=== PATIENT | male | born 1950 | race Caucasian/White ===

== ENCOUNTER 2016-10-02 08:26 | Inpatient (IN) | payer BC, MEDICARE ==
[~2016-10-02] VITALS: Ht 182.9 cm; Wt 99.8 kg
--- NOTE | ~2016-10-02 | MR101 ---
[facility] A Service of [facility] & [facility] RADIOLOGY TEXT RESULTS PATIENT: MORENO SALINAS LOCATION: [facility] 465-01 : [birth year] UNIT #: [id number] AGE: [address]: Martin Archer MD SEX: M ORDER DR: [id number] [facility] [address] [facility]. [place], [place] [address] [id number] I MR#: [id number] #: [id number] NAME: MORENO SALINAS. : 1950 SEX: M STUDY DATE/TIME: 10/04/2016 17:34 UNIT: [facility] ROOM: [facility] STUDY DESCRIPTION: MR Knee WWo Contrast Lt Attending Physician: Martin Archer M.D. Ordering Physician: Martin Archer M.D. Primary Care Physician: Tio Vergara M.D. MRI CENTER REPORT This report is preliminary unless electronic signature is present. EXAM Left knee MRI without and with contrast, 10/04/2016 HISTORY 65-year-old male with left knee pain and swelling on the patella for 6 days. History of a fall 6 weeks ago. History of diabetes. History of at least two prior left knee surgeries. No operative reports available for review. COMPARISON Knee x-rays 05/20/2009. Left knee x-ray 10/02/2016. TECHNIQUE Multiplanar, multisequence high field MR imaging of the left knee was performed both pre and post administration of IV gadolinium (20 mL MultiHance). FINDINGS There is moderate prepatellar subcutaneous soft tissue edema with some ill-defined fluid noted in the region of the prepatellar bursa. No organized drainable fluid collection identified to suggest abscess. Findings do suggest prepatellar bursal inflammation. There is a small knee effusion with enhancement of the synovium suggesting synovitis. This may be inflammatory and/or post-traumatic. Infectious synovitis considered less likely. Small popliteal cyst also noted. There is truncation of the posterior horn and body segment of the medial meniscus suggesting prior partial medial meniscectomy. No evidence of a recurrent medial meniscus tear. Lateral meniscus appears intact. Cruciate and collateral ligaments are intact. Extensor mechanism is intact. [facility] A Service of [facility] & [facility] RADIOLOGY TEXT RESULTS PATIENT: MORENO SALINAS LOCATION: [facility] 465-01 : [birth year] UNIT #: [id number] AGE: [address]: Martin Archer MD SEX: M ORDER DR: There is high-grade chondromalacia lateral patellar facet with mild subchondral marrow edema. Moderate to high-grade chondromalacia throughout the femoral trochlea. Lateral compartment articular cartilage is intact. There is high-grade full-thickness articular cartilage loss throughout the medial compartment. Bone marrow signal is otherwise within expected limits. No MR evidence of osteomyelitis or acute fracture. Visualized musculature is unremarkable. IMPRESSION 1. Moderate subcutaneous soft tissue edema and inflammation along the anterior aspect of the knee. There is some ill-defined fluid in the region of the prepatellar bursa suggesting bursitis. No organized drainable fluid collections to suggest abscess. 2. No MR evidence of osteomyelitis or acute fracture. 3. Small knee effusion with synovial enhancement consistent with synovitis. This is likely inflammatory and/or post-traumatic. Infectious synovitis considered less likely. 4. Presumed postsurgical changes of prior partial medial meniscectomy. No evidence of a recurrent meniscus tear. No acute ligament injury. 5. 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 Dictated by... Kel Lerner M.D. THIS IS AN ELECTRONICALLY VERIFIED REPORT Kel Lerner M.D. at 10/06/2016 12:15 PM KVNG/wolf TD: 10/05/2016 08:51 JOB #: [id number] MRI CENTER REPORT Page 1 of 1 COPY
--- NOTE | ~2016-10-02 | DS ---
Unit #: [id number] #: [id number] Patient: MORENO SALINAS [id number] [address] [address] [id number] I MR#: [id number] NAME: MORENO SALINAS. ROOM: [facility] Age: 65 Sex: M Admission Date: 10/02/2016 : 1950 Discharge Date: 10/05/2016 Attending Physician: Martin Archer M.D. Primary Care Physician: Tio Vergara M.D. DISCHARGE SUMMARY PRINCIPAL DISCHARGE DIAGNOSES 1. Left knee cellulitis. 2. Hypertension. 3. Hyperlipidemia. 4. Chronic insomnia. 5. Osteoarthritis. 6. Renal insufficiency. 7. Iron deficiency anemia. 8. Chronic ataxia. PROCEDURES PERFORMED None. CONSULTANTS Dr. Lanza from orthopedics. REASON FOR HOSPITALIZATION The patient is a 65-year-old white male with a history of hypertension, hyperlipidemia, insomnia, osteoarthritis, recently found to have renal insufficiency at which time his Farxiga apparently discontinued. He has had some type of chronic ataxia for which he has had multiple workups and is approaching a trip to the [facility] for further evaluation. He has had multiple recent falls on his knees. He developed a scab on the lateral aspect of his left knee, which he was continuously picking at. He then noticed that the knee suddenly became red, swollen, felt feverish locally, but no fever or chills systemically. He presented himself to the emergency room, where x-ray showed a small effusion, moderate osteoarthritis, prepatellar effusion. His white count was normal. He had an elevated sedimentation rate and CRP, mild anemia, mild renal insufficiency and was admitted. HOSPITAL COURSE On admission his coags were normal. Uric acid was normal Sedimentation rate was 77 and CRP 6.6. BMP normal except for CO2 of 21. Random blood sugar was 149, BUN 38, creatinine 1.7, GFR 41.4, hemoglobin 11.5 with normal indices. The patient was started on IV Cleocin. Orthopedics was consulted. He had some initial improvement in the first 24 hours, but it did not seem to improve after that. Because of this, Augmentin was added this antibiotic regimen. Accu-Cheks were obtained morning and evening. Low-dose sliding scale insulin was instituted. He was placed on Lovenox for DVT prophylaxis. Labs were sent for further workup of his anemia. His iron was low at 13. TIBC was 295. Transferrin was normal. Transferrin saturation was low at 4. B12 and folic acid levels were normal. His renal function improved somewhat while he was here. Because Unit #: [id number] #: [id number] Patient: MORENO SALINAS of his iron deficiency anemia a stool for occult blood was ordered times three. One was performed and was negative. Because of his lack of initial improvement, he underwent MRI of the left knee, which showed moderate subcutaneous soft tissue edema and inflammation along the anterior aspect of the knee. No defined fluid was in the region of the prepatellar bursa, suggestive of bursitis. No organized drainable fluid collection to suggest abscess. Small knee effusion with synovial enhancement, consistent with synovitis. Evidence of prior medial meniscectomy, high-grade chondromalacia of the lateral patellar facet, femoral trochlea. In any case, in discussion with Dr. Lanza since the patient was improving and in the last 24 hours on Augmentin and Cleocin, he felt that it was safe to discharge him home with followup in his office, which was already scheduled. The patient's Glucophage was discontinued on admission and held because of his renal insufficiency. FOLLOWUP 1. He is to follow up with Dr. Vergara in one week. 2. Follow up with Dr. Lanza per his instructions. 3. He will need to follow up for his iron deficiency anemia. I do not know when his last colonoscopy was. This may need to be performed. ACTIVITY He has no particular limitations on activity. DISCHARGE MEDICATIONS He was discharged home with a prescription for 1. Augmentin 875 mg 1 p.o. b.i.d. for an additional 9 days, 2. Cleocin 300 mg 1 p.o. q.i.d. for an additional 7 days. 3. Florastor 250 mg 1 p.o. b.i.d. for 30 days. 4. Again, he is off his Glucophage and resumed on all of his other home medicines, which include a. Ambien 10 mg 1 p.o. at nighttime p.r.n. insomnia. b. Crestor 40 mg p.o. daily. c. Cymbalta 50 mg p.o. daily. d. Vistaril 40 mg p.o. daily. e. Amitriptyline 25 mg p.o. at nighttime. f. Metoprolol succinate 50 mg daily. g. Actos 30 mg daily. DIET Healthy heart, constant carb diet. Dictated by... Von Ldeezma/mary TD: 10/06/2016 13:42 JOB #: [id number] Unit #: [id number] #: [id number] Patient: MORENO SALINAS Pam DISCHARGE SUMMARY Page 1 of 1 X Martin Archer MD X DISCHARGE SUMMARY
--- NOTE | ~2016-10-02 | HP ---
Unit #: [id number] #: [id number] Patient: MORENO SALINAS [id number] [address] [place], [place] [address] [id number] MR#: [id number] NAME: MORENO SALINAS ROOM: [facility] Age: 65 Sex: M Admission Date: 10/02/2016 : 1950 Attending Physician: Martin Archer M.D. Primary Care Physician: Tio Vergara M.D. HISTORY AND PHYSICAL HISTORY OF PRESENT ILLNESS A 65-year-old white male with a history of hypertension, hyperlipidemia, insomnia, osteoarthritis, and recently found to have renal insufficiency. In his primary care physician's office, his Farxiga was discontinued. He had a recent fall on his bilateral knees. He has some kind of chronic ataxia for which he is going to the [facility] in the near future. He has had multiple falls before without any serious injuries other than a fracture of his left humerus for which he was recently released by his orthopedic surgeon. In any case, he had a recent fall then developed a scab on the left side of his left knee which he had been constantly picking at. He then noticed that his left knee suddenly became erythematous, swollen, and painful. He arrived in the emergency room with no fever or chills, afebrile, normal white count, elevated sed rate and CRP, mild anemia, and mild renal insufficiency. X-rays show a small effusion, moderate osteoarthritis, and a prepatellar effusion as well. He has been seen by Orthopedics who feels like he can be medically treated without an operation, and he is admitted for further evaluation and treatment of what appears to be left knee cellulitis and prepatellar bursitis. PAST MEDICAL HISTORY 1. Type 2 diabetes mellitus. 2. Hyperlipidemia. 3. Insomnia. 4. Osteoarthritis. 5. Chronic ataxia. 6. Recently discovered renal insufficiency. PAST SURGICAL HISTORY 1. Bilateral shoulder arthroscopy. 2. Bilateral knee arthroscopy. 3. No other significant surgical history other than vasectomy and sebaceous cyst removed from his neck. ALLERGIES No known medical allergies. MEDICATIONS PRIOR TO ADMISSION 1. Ambien 10 mg at bedtime p.r.n. 2. Crestor 40 mg at bedtime. 3. Cymbalta 50 mg p.o. daily. 4. Zestril 40 mg p.o. daily. 5. Glucophage 1000 mg b.i.d. 6. Amitriptyline 25 mg daily. Unit #: [id number] #: [id number] Patient: MORENO SALINAS 7. Metoprolol succinate 50 mg daily. 8. Actos 30 mg daily. 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 . Nonsmoker, nondrinker, and no street drug use. FAMILY HISTORY Noncontributory. PHYSICAL EXAMINATION GENERAL: He is awake, alert, oriented 3, and in no acute distress. is at the bedside during the history and physical examination. HEENT: Unremarkable. NECK: Supple without JVD, bruits, adenopathy, or thyromegaly. CHEST: Clear to auscultation. HEART: Regular rate and rhythm without any murmurs, rubs, or gallops. ABDOMEN: Soft, nondistended, and nontender, with positive with bowel sounds and no hepatosplenomegaly. EXTREMITIES: No clubbing, cyanosis, or edema. His left knee has some edema and an effusion overtop of the left patella. He has a scab that is closed without any discharge. It is about a 1 cm maximum diameter on the left lateral knee aspect. He has erythema really related just to the knee area but not really extending much above or below. GENITOURINARY/RECTAL: Deferred. NEUROLOGIC: Grossly intact other than the ataxia, but the patient was not ambulated right now. DIAGNOSTIC STUDIES LABORATORY: PT and PTT are within normal limits. Uric acid was normal at 3.3. Sedimentation rate was 77 and CRP 6.6. BMP normal except for a CO2 of 21, random blood sugar of 149, BUN 38, creatinine 1.7, and GFR 41.4. CBC is normal except for a hemoglobin of 11.5 with normal indices. IMAGING: Three views of the left knee show a small effusion in the knee joint itself, moderate osteoarthritis, and prepatellar effusion. IMPRESSION 1. Left knee cellulitis. 2. Left prepatellar bursitis. 3. Osteoarthritis. 4. Normocytic, normochromic anemia. 5. Chronic ataxia. 6. Hyperlipidemia. 7. Hypertension. 8. Insomnia. 9. Renal insufficiency. PLAN He has been started on IV Cleocin, Lovenox for DVT prophylaxis, sliding scale insulin, and Accu-Cheks. Will check his B12, folic acid, and iron studies because of the anemia. Will put him on Florastor because of the Cleocin. Orthopedics has already seen the patient and will follow. Obviously, his Glucophage is being held because of renal insufficiency and hospitalization. Other meds are resumed at previous doses. Further evaluation pending results of the above. Dictated by Unit #: [id number] #: [id number] Patient: MORENO SALINAS M.D. WRK/mohit TD: 10/02/2016 18:05 JOB #: [id number] HISTORY AND PHYSICAL Page 1 of 1 X Martin Archer MD HISTORY AND PHYSICAL
--- NOTE | ~2016-10-02 | CO ---
Unit #: [id number] #: [id number] Patient: MORENO SALINAS [id number] [address] [place], [place] [address] [id number] I MR#: [id number] NAME: MORENO SALINAS. ROOM: 465 Age: 65 Sex: M Admission Date: 10/02/2016 : 1950 Attending Physician: Martin Archer M.D. Primary Care Physician: Tio Vergara M.D. Consultation Date: 10/02/2016 CONSULTATION REPORT CHIEF COMPLAINT Left knee pain and erythema. HISTORY OF PRESENT ILLNESS The patient is a 65-year-old male who presents with a five day history of increasing left anterior knee pain and erythema associated with swelling. The patient uses a cane due to poor balance of unknown etiology. He fell last week and sustained an abrasion to the knee and since that time he has had some persistent pain and has noted increased erythema today. He is admitted with cellulitis and there is a concern of septic and prepatellar bursitis. PAST MEDICAL HISTORY Remarkable for type 2 diabetes, hypercholesterolemia. HOME MEDICATIONS Pioglitazone, Crestor, Cymbalta, Ambien, Actos, metformin. ALLERGIES None. PAST SURGICAL HISTORY Knee arthroscopy, shoulder arthroscopy, vasectomy, neck biopsy. REVIEW OF SYSTEMS Unremarkable for fevers or chills. PHYSICAL EXAMINATION GENERAL: This is a well developed, well nourished male in no acute distress. He is alert, oriented and cooperative. Evaluation of the left knee demonstrates a 6 cm area of erythema overlying the patella. There is no fluctuance. There is a 2 cm eschar present in the anterolateral knee. Range of motion of the knee shows 0-130 degree of flexion without significant underlying pain. Collaterals ligaments are stable. There is no erythema extending up the leg. There is no evidence of lymphangitis. Pulses are intact. Sensation is normal. Motor exam is normal. AP and lateral views of the left knee show narrowing of the medial compartment. IMPRESSION Left anterior knee cellulitis without evidence of septic prepatellar bursitis. Unit #: [id number] #: [id number] Patient: MORENO SALINAS PLAN 1. Admit for IV antibiotics. 2. I will observe during this admission. If he develops fluctuance in the prepatellar bursa, we would consider incision and drainage. Currently the patient does not need surgical intervention. 3. I will follow him closely during this admission for development of possible abscess. Dictated by.Leslie Lanza M.D. ROD/gregory TD: 10/03/2016 06:26 JOB #: [id number] CONSULTATION REPORT Page 1 of 1 X Tashia Lanza MD X CONSULTATION REPORT
--- NOTE | ~2016-10-02 | CR172 ---
[facility] A Service of [facility] & [facility] RADIOLOGY TEXT RESULTS PATIENT: MORENO SALINAS LOCATION: [place] [address] : [birth year] UNIT #: [id number] AGE: [address]: Martin Archer MD SEX: M ORDER DR: [id number] [facility] [address] [facility] [place], [place] [address] [id number] MR#: [id number] Acc #: [id number] NAME: MORENO SALINAS : 1950 SEX: M STUDY DATE/TIME: UNIT: [facility] ROOM: [id number] STUDY DESCRIPTION: CR Knee 3 Views Lt Attending Physician: Martin Archer M.D. Ordering Physician: Fantasma Paige M.D. Primary Care Physician: Tio Vergara M.D. MEDICAL IMAGING REPORT This report is preliminary unless electronic signature is present EXAM Left knee 3 views 10/02/2016 1005 hours HISTORY 64-year-old man with redness, swelling and hotness to touch at knee for 4 days. Patient states he fell 4 months ago. History of diabetes. COMPARISON None FINDINGS AP, cross-table lateral and sunrise views demonstrate trace intraarticular joint effusion with no lipohemarthrosis or fracture. There is tricompartmental degenerative change with joint space loss and spurring. Joint space loss is greatest in the medial compartment. There is prepatellar soft tissue swelling and edema. Anterior to the patella soft tissue measures up to 2.2 cm anterior-posterior. This could represent hematoma, abscess or fluid in the prepatellar bursa. IMPRESSION 1. Very small knee joint effusion with moderate osteoarthritis. 2. There is prepatellar edema and soft tissue swelling measuring up to 2.2 cm in thickness. Fluid or hematoma in the prepatellar bursa could have this appearance. Infection cannot be excluded. Dictated by... Pamela Coy M.D. THIS IS AN ELECTRONICALLY VERIFIED REPORT Pamela Coy M.D. at 10/02/2016 6:53 PM SMM/to [facility] A Service of [facility] & [facility] RADIOLOGY TEXT RESULTS PATIENT: MORENO SALINAS LOCATION: [facility] 465-01 : [birth year] UNIT #: [id number] AGE: [address]: Martin Archer MD SEX: M ORDER DR: TD: 10/02/2016 15:11 JOB #: [id number] MEDICAL IMAGING REPORT Page 1 of 1 COPY
[~2016-10-02 08:26] MED LIST: ACIPHEX20 MG PO; ACTOS PO; ALTACE PO; AMARYL PO; AMBIEN10 MG PO; ATARAX PO; CRESTOR PO; FLAGYL PO; FLOMAX0.4 MG PO; INSULIN; JANUMET; KEFLEX500 MG PO; LEVAQUIN PO; LORTAB 10/500 T1 TAB PO; METFORMIN PO; NAPROSYN375 MG PO; NAPROSYN500 MG PO; NEXIUM PO; NIASPAN1000 M1 PO; PHENERGAN PO; PREDNISONE50 MG PO; PRINIVIL20 M1 PO; WALGREENS PHARMACY
[2016-10-02 10:05] LABS: EOSINOPHIL# 0.1 X10e3 (0-0.7); EOSINOPHIL% 1.6 % (0.0-7.0); HEMATOCRIT 35.1 % (38.0-50.0); HEMOGLOBIN 11.5 gm/dL (13.0-16.0); LYMPHOCYTE# 0.8 X10e3 (1.0-3.5); LYMPHOCYTE% 8.2 % (17.0-45.0); MEAN CELL VOLUME 87.5 FL (83-96); MEAN CORPUSCULAR HEMOGLOBIN 28.5 PG (28-34); MEAN CORPUSCULAR HGB CONC 32.6 g/dL (30-36); MONOCYTE# 0.8 X10e3 (0-1.0); MONOCYTE% 8.5 % (3.0-12.0); NEUTROPHIL# 7.7 X10e3 (1.5-7.1); NEUTROPHIL% 81.7 % (40-75); PLATELET COUNT 180 X10e3 (140-420); RED BLOOD COUNT 4.01 X10e (3.90-5.60); RED CELL DISTRIBUTION WIDTH 15.2 % (11.0-15.5); WHITE BLOOD COUNT 9.4 X10e3 (4.0-10.5)
[2016-10-02 10:08] LABS: DIFF IND NO
[2016-10-02 10:25] LABS: PARTIAL THROMBOPLASTIN TIME 27.3 SECONDS (23.5-31.3); PROTHROMBIN TIME (PATIENT) 10.7 SECONDS (10.0-11.7)
[2016-10-02 10:26] LABS: BUN/CREATININE RATIO 22.35; CALCIUM SERUM 8.8 mg/dL (8.4-10.2); CREATININE SERUM 1.7 mg/dL (0.6-1.4); GLOM FILT RATE Estimated 41.4 mL/min (>60); POTASSIUM 4.2 mmol/L (3.5-5.1); URIC ACID 3.2 mg/dL (2.6-7.2)
[2016-10-02] MEDS ORDERED: CRESTOR40 MG PO (12:23)
[2016-10-02] MEDS ORDERED: AMBIEN10 MG PO (12:23)
[2016-10-02] MEDS ORDERED: ZESTRIL40 MG PO (12:24)
[2016-10-02] MEDS ORDERED: CYMBALTA PO (12:24)
[2016-10-02] MEDS ORDERED: METOPROLOL SUCC50 MG PO (12:25)
[2016-10-02] MEDS ORDERED: METFORMIN PO (12:25)
[2016-10-02] MEDS ORDERED: AMITRIPTYLINE H25 MG PO (12:25)
[2016-10-02] MEDS ORDERED: PIOGLITAZONE30 MG PO (12:26)
[2016-10-02 18:04] LABS: IRON SERUM 13 ug/dL (45-182); TOTAL IRON BINDING CAPACITY 295 ug/dL (252-460); TRANSFERRIN 211 mg/dL (180-329); TRANSFERRIN SATURATION 4 % (20-50)
[2016-10-02 18:20] LABS: FERRITIN 62 ng/mL (24-336)
[2016-10-02 18:23] LABS: FOLATE (FOLIC ACID) >23.2 ng/mL (>5.8)
[2016-10-03 03:32] LABS: BASOPHIL% 0.5 % (0-2.5); EOSINOPHIL# 0.1 X10e3 (0-0.7); EOSINOPHIL% 1.4 % (0.0-7.0); HEMATOCRIT 34.2 % (38.0-50.0); HEMOGLOBIN 11.7 gm/dL (13.0-16.0); LYMPHOCYTE# 1.2 X10e3 (1.0-3.5); LYMPHOCYTE% 13.7 % (17.0-45.0); MEAN CELL VOLUME 86.5 FL (83-96); MEAN CORPUSCULAR HEMOGLOBIN 29.5 PG (28-34); MEAN CORPUSCULAR HGB CONC 34.2 g/dL (30-36); MEAN PLATELET VOLUME 8.7 FL (6.5-11.5); MONOCYTE% 11.3 % (3.0-12.0); NEUTROPHIL# 6.3 X10e3 (1.5-7.1); NEUTROPHIL% 73.1 % (40-75); PLATELET COUNT 210 X10e3 (140-420); RED BLOOD COUNT 3.95 X10e (3.90-5.60); RED CELL DISTRIBUTION WIDTH 14.9 % (11.0-15.5); WHITE BLOOD COUNT 8.6 X10e3 (4.0-10.5)
[2016-10-03 03:43] LABS: DIFF IND NO
[2016-10-03 04:35] LABS: BUN/CREATININE RATIO 18.66; CALCIUM SERUM 8.4 mg/dL (8.4-10.2); CREATININE SERUM 1.5 mg/dL (0.6-1.4); GLOM FILT RATE Estimated 48.2 mL/min (>60); POTASSIUM 3.8 mmol/L (3.5-5.1)
[2016-10-04 02:12] LABS: HEMATOCRIT 34.3 % (38.0-50.0); HEMOGLOBIN 11.4 gm/dL (13.0-16.0); MEAN CELL VOLUME 85.8 FL (83-96); MEAN CORPUSCULAR HEMOGLOBIN 28.6 PG (28-34); MEAN CORPUSCULAR HGB CONC 33.3 g/dL (30-36); MEAN PLATELET VOLUME 8.8 FL (6.5-11.5); RED CELL DISTRIBUTION WIDTH 14.8 % (11.0-15.5); WHITE BLOOD COUNT 8.3 X10e3 (4.0-10.5)
[2016-10-04 02:38] LABS: CREATININE SERUM 1.6 mg/dL (0.6-1.4); GLOM FILT RATE Estimated 44.6 mL/min (>60); POTASSIUM 3.6 mmol/L (3.5-5.1)
[2016-10-05 02:31] LABS: HEMATOCRIT 36.1 % (38.0-50.0); HEMOGLOBIN 11.9 gm/dL (13.0-16.0); MEAN CELL VOLUME 85.5 FL (83-96); MEAN CORPUSCULAR HEMOGLOBIN 28.2 PG (28-34); MEAN PLATELET VOLUME 8.6 FL (6.5-11.5); RED BLOOD COUNT 4.22 X10e (3.90-5.60); RED CELL DISTRIBUTION WIDTH 14.4 % (11.0-15.5); WHITE BLOOD COUNT 8.3 X10e3 (4.0-10.5)
[2016-10-05 02:54] LABS: BUN/CREATININE RATIO 22.85; CALCIUM SERUM 8.7 mg/dL (8.4-10.2); CREATININE SERUM 1.4 mg/dL (0.6-1.4); GLOM FILT RATE Estimated 52.4 mL/min (>60); POTASSIUM 3.9 mmol/L (3.5-5.1)
[2016-10-05] MEDS ORDERED: ACETAMINOPHEN325 MG PO (10:59)
[2016-10-05] MEDS ORDERED: AUGMENTIN PO (11:01)
[2016-10-05] MEDS ORDERED: PROBIOTIC250 MG PO (11:02)
[2016-10-05] MEDS ORDERED: CLEOCIN PO (11:04)
== END 2016-10-05 11:30 | disposition home or self-care (01) | DRG 603 ==
LOC: CED 08:26 → C4C 12:12 → CEDOF 12:12 → CED 13:19 → CEDOF 13:19 → C4C 15:40
PROVIDERS: Emergency Medicine; Internal Medicine
DX: L03.116 Cellulitis of left lower limb (principal); E11.9 Type 2 diabetes mellitus without complications; E78.5 Hyperlipidemia, unspecified; D64.9 Anemia, unspecified; N28.9 Disorder of kidney and ureter, unspecified; G47.00 Insomnia, unspecified; M19.90 Unspecified osteoarthritis, unspecified site; R27.0 Ataxia, unspecified; Z79.84 Long term (current) use of oral hypoglycemic drugs; M65.862 Other synovitis and tenosynovitis, left lower leg
CPT/HCPCS: 36415; 73562; 73723; 80048; 82274; 82607; 82728; 82746; 82947; 83540; 83550; 84550; 85025; 85027; 85610; 85652; 85730; 86140; 99284; A9577; J1650; J1815